=== PATIENT | male | born 1995 | race Caucasian/White ===

== ENCOUNTER 2022-04-05 21:57 | Emergency (ER) | payer BC, OTHER ==
[2022-04-05] MEDS ORDERED: ACETAMINOPHEN 500 MG TAB ONE (23:06)
[2022-04-05] MEDS ORDERED: ONDANSETRON 4 MG (ODT) TAB ONE (23:06)
--- NOTE | 2022-04-05 23:50 | RAD REPORT ---
EXAM DESCRIPTION: RAD - Chest Single View - 04/05/2022 11:06 pm CLINICAL HISTORY: DYSPNEA COMPARISON: <Comparisons> FINDINGS: Lines: None. Lungs: No evidence of edema or pneumonia. Pleural: No significant pleural effusions or pneumothorax. Cardiac: The heart size is within normal limits. Bones: No acute fractures. Other: IMPRESSION: No acute cardiopulmonary disease.
--- NOTE | 2022-04-05 23:56 | ER ---
Nurse's Notes [facility] Name: Jonah Elizabeth Age: 26 yrs Sex: Male : 1995 Arrival Date: 04/05/2022 Time: 21:59 Bed 20 Private MD: Diagnosis: SARS-associated coronavirus as the cause of diseases classified elsewhere;Fever, unspecified;Myalgia Presentation: 04/05 22:07 Chief complaint: Patient states: COVID SYMPTOMS FOR A COUPLE DAYS. Coronavirus screen: [facility] Vaccine status: Patient reports receiving the 2nd dose of the covid vaccine. congestion, cough unrelated to allergies, diarrhea, difficulty breathing, fatigue, fever, headache, muscle pain, nausea, shortness of breath, Client presents with at least one sign or symptom that may indicate coronavirus-19. Standard/surgical mask placed on the client. Ebola Screen: Patient negative for fever greater than or equal to 101.5 degrees Fahrenheit, and additional compatible Ebola Virus Disease symptoms. Initial Sepsis Screen: Does the patient meet any 2 criteria? No. Patient's initial sepsis screen is negative. Does the patient have a suspected source of infection? No. Patient's initial sepsis screen is negative. Risk Assessment: Do you want to hurt yourself or someone else? Patient reports no desire to harm self or others. Onset of symptoms was April 05, 2022. 22:07 Method Of Arrival: Ambulatory [facility] 22:07 Acuity: TO 4 [facility] Triage Assessment: 22:10 General: Appears in no apparent distress. ill, Behavior is calm, cooperative, [facility] appropriate for age. Pain: Complains of pain in GENERALIZED. Respiratory: Reports shortness of breath Onset: The symptoms/episode began/occurred gradually, the patient has mild shortness of breath. Historical: - Allergies: 22:10 NKDA; [facility] - Home Meds: 22:10 None [Active]; 1 - PMHx: 22:10 None; 1 - PSHx: 22:10 None; [facility] - Immunization history:: Adult Immunizations up to date. - Social history:: Smoking status: Patient denies any tobacco usage or history of. Screenin:08 Abuse screen: Denies threats or abuse. Denies injuries from another. Nutritional vc1 screening: No deficits noted. Tuberculosis screening: No symptoms or risk factors identified. Fall Risk None identified. Assessment: 23:08 General: Appears in no apparent distress. comfortable, Behavior is calm, cooperative. vc1 Pain: Complains of pain in generalized body aches. Neuro: No deficits noted. Level of Consciousness is awake, alert, obeys commands, Oriented to person, place, time, situation. Cardiovascular: No deficits noted. Capillary refill < 3 seconds Clubbing of nail beds is absent JVD is absent Patient's skin is warm and dry. Rhythm is regular. Respiratory: Reports cough that is persistent Airway is patent Trachea midline Respiratory effort is even, unlabored, Respiratory pattern is regular, symmetrical, Breath sounds are clear bilaterally. GI: No deficits noted. Reports diarrhea, nausea, vomiting. : No deficits noted. No signs and/or symptoms were reported regarding the genitourinary system. EENT: No deficits noted. No signs and/or symptoms were reported regarding the EENT system. Derm: No deficits noted. No signs and/or symptoms reported regarding the dermatologic system. Skin is intact, is healthy with good turgor, Skin is dry, Skin temperature is warm. Musculoskeletal: No deficits noted. Circulation, motion, and sensation intact. Range of motion: intact in all extremities. 04/06 00:11 Reassessment: Patient appears in no apparent distress at this time. No changes from vc1 previously documented assessment. Patient and/or family updated on plan of care and expected duration. Pain level reassessed. Patient is alert, oriented x 3, equal unlabored respirations, skin warm/dry/pink. Vital Signs: 04/05 22:07 BP 125 / 77; Pulse 108; Resp 18; Temp 101.5; Pulse Ox 97% on R/A; Weight 92.53 kg; bh1 Height 5 ft. 10 in. (177.80 cm); Pain 5/10; 04/06 00:11 BP 128 / 78; Pulse 94; Resp 18 S; Temp 99.8; Pulse Ox 98% on R/A; vc1 04/05 22:07 Body Mass Index 29.27 (92.53 kg, 177.80 cm) [facility] ED Course: 04/05 21:59 Patient arrived in ED. bp1 22:03 Garret Yi DO is Attending Physician. ms3 22:10 Triage completed. bh1 22:10 Arm band placed on right wrist. bh1 22:32 Martina Bradshaw, RN is Primary Nurse. 3 22:36 Flu Sent. 5 22:36 COVID swab sent to lab. Flu and/or RSV swab sent to lab. 5 23:07 CXR XRAY In Process Unspecified. EDMS 23:08 Patient has correct armband on for positive identification. Bed in low position. Call vc1 light in reach. Side rails up X 1. Client placed on continuous cardiac and pulse oximetry monitoring. NIBP monitoring applied. Door closed. Noise minimized. Family accompanied patient. 23:08 Flu Sent. vc1 23:55 Camilo White DO is Referral Physician. ms3 04/06 00:12 No provider procedures requiring assistance completed. Patient did not have IV access vc1 during this emergency room visit. Administered Medications: 04/05 23:08 Drug: Tylenol 1000 mg Route: PO; vc1 04/06 00:12 Follow up: Response: Temperature is decreased vc1 04/05 23:08 Drug: Zofran (Ondansetron) 4 mg Route: PO; vc1 23:08 Follow up: Response: No adverse reaction vc1 Medication: 04/06 00:12 VIS not applicable for this client. vc1 Outcome: 04/05 23:56 Discharge ordered by MD. ms3 04/06 00:12 Discharged to home ambulatory. vc1 Condition: stable Discharge instructions given to patient, Instructed on discharge instructions, medication usage, Demonstrated understanding of instructions, medications, Prescriptions given X 1. 00:20 Patient left the ED. vc1 Signatures: Dispatcher [employer] [facility] Kerry Piña [facility] Martina Bradshaw, RN RN [facility] Garret Yi DO DO ia3 Bernice Willett [facility] Trinity Prather RN RN 1 Brandee Mchugh, RN RN [facility]
--- NOTE | 2022-04-05 23:57 | EDPHYS ---
Physician Documentation [facility] Name: Jonah Elizabeth Age: 26 yrs Sex: Male : 1995 Arrival Date: 04/05/2022 Time: 21:59 Bed 20 Private MD: ED Physician Garret Yi HPI: 04/05 22:11 This 26 yrs old Male presents to ER via Ambulatory with complaints of Breathing ms3 Difficulty, Dizziness, Headache, Abdominal Pain. 22:11 26-year-old presents for shortness of breath, fatigue, fevers, chills, body aches that ms3 began today. Patient states his discomfort is 6/10 described as aching. Patient denies alleviating or inciting factors. Patient endorses nausea, vomiting, decreased appetite. Patient denies diarrhea. Historical: - Allergies: 22:10 NKDA; bh1 - Home Meds: 22:10 None [Active]; bh1 - PMHx: 22:10 None; bh1 - PSHx: 22:10 None; bh1 - Immunization history:: Adult Immunizations up to date. - Social history:: Smoking status: Patient denies any tobacco usage or history of. ROS: 22:11 Eyes: Negative for injury, pain, redness, and discharge, Neck: Negative for injury, ms3 pain, and swelling, Cardiovascular: Negative for chest pain, and palpitations. 22:11 MS/Extremity: Negative for injury and deformity, Skin: Negative for injury, rash, and discoloration, Allergy/Immunology: Negative for hives, rash, and allergies. 22:11 Constitutional: Positive for body aches, chills, fever, poor PO intake. 22:11 Respiratory: Positive for shortness of breath. 22:11 Abdomen/GI: Positive for nausea and vomiting. 22:11 All other systems are negative. Exam: 22:11 Constitutional: This is a well developed, well nourished patient who is awake, alert, ms3 and in no acute distress. Head/Face: Normocephalic, atraumatic. Neck: Trachea midline, no cervical lymphadenopathy. Supple, full range of motion without nuchal rigidity, or vertebral point tenderness. No Meningismus. Chest/axilla: Normal chest wall appearance and motion. Nontender with no deformity. 22:11 Cardiovascular: Regular rate and rhythm with a normal S1 and S2. No gallops, murmurs, or rubs. Normal PMI, no JVD. No pulse deficits. Respiratory: Lungs have equal breath sounds bilaterally, clear to auscultation and percussion. No rales, rhonchi or wheezes noted. No increased work of breathing, no retractions or nasal flaring. Abdomen/GI: Soft, non-tender, with normal bowel sounds. No distension or tympany. No guarding or rebound. No evidence of tenderness throughout. Skin: Warm, dry with normal turgor. Normal color with no rashes, no lesions, and no evidence of cellulitis. MS/ Extremity: Pulses equal, no cyanosis. Neurovascular intact. Full, normal range of motion. Neuro: Awake and alert, GCS 15, oriented to person, place, time, and situation. Cranial nerves II-XII grossly intact. Motor strength 5/5 in all extremities. Sensory grossly intact. Cerebellar exam normal. Normal gait. Psych: Awake, alert, with orientation to person, place and time. Behavior, mood, and affect are within normal limits. 22:11 Cardiovascular: Rate: tachycardic, Rhythm: regular, Pulses: no pulse deficits are appreciated, Heart sounds: normal. Vital Signs: 22:07 BP 125 / 77; Pulse 108; Resp 18; Temp 101.5; Pulse Ox 97% on R/A; Weight 92.53 kg; [facility] Height 5 ft. 10 in. (177.80 cm); Pain 5/10; 04/06 00:11 BP 128 / 78; Pulse 94; Resp 18 S; Temp 99.8; Pulse Ox 98% on R/A; vc1 04/05 22:07 Body Mass Index 29.27 (92.53 kg, 177.80 cm) [facility] MDM: 04/05 22:09 Patient medically screened. ms3 22:11 Differential diagnosis: COVID vs Flu vs PNA. ms3 23:56 Data reviewed: vital signs, nurses notes, lab test result(s), radiologic studies, and ms3 as a result, I will discharge patient. Counseling: I had a detailed discussion with the patient and/or guardian regarding: the historical points, exam findings, and any diagnostic results supporting the discharge/admit diagnosis, lab results, radiology results, the need for outpatient follow up, to return to the emergency department if symptoms worsen or persist or if there are any questions or concerns that arise at home. ED course: On re-evaluation patient is improved, A/O x4, nad, non-toxic, ambulatory in ED, speaking full sentences.. 04/05 22:11 Order name: Flu; Complete Time: 23:37 ms3 04/05 22:13 Order name: Influenza Screen (A ; Complete Time: 23:37 EDMS 04/05 22:15 Order name: CXR XRAY; Complete Time: 23:55 ms3 Administered Medications: 23:08 Drug: Tylenol 1000 mg Route: PO; vc1 04/06 00:12 Follow up: Response: Temperature is decreased vc1 04/05 23:08 Drug: Zofran (Ondansetron) 4 mg Route: PO; vc1 23:08 Follow up: Response: No adverse reaction vc1 Disposition Summary: 04/05/22 23:56 Discharge Ordered Location: Home ms3 Condition: Stable ms3 Diagnosis - SARS-associated coronavirus as the cause of diseases classified elsewhere ms3 - Fever, unspecified ms3 - Myalgia ms3 Followup: ms3 - With: Camilo White DO - When: 2 - 3 days - Reason: Recheck today's complaints Discharge Instructions: - Discharge Summary Sheet ms3 - COVID-19 ms3 - Things to Know about the COVID-19 Pandemic - [facility] ms3 - 10 Things You Can Do to Manage Your COVID-19 Symptoms at Home - [facility] ms3 - COVID-19: Quarantine vs. Isolation - [facility] ms3 - Prevent the Spread of COVID-19 if You Are Sick - [facility] ms3 Forms: - Medication Reconciliation Form ms3 - Thank You Letter ms3 - Antibiotic Education ms3 - Prescription Opioid Use ms3 Prescriptions: - ondansetron 4 mg Oral tablet,disintegrating - take 1 tablet by ORAL route every 8 hours; 15 tablet; Refills: 0, Product ms3 Selection Permitted Signatures: Dispatcher [employer] [facility] Garret Yi DO DO ms3 Trinity Prather, RN RN vc1 Brandee Mchugh RN RN 1
[2022-04-06 01:14] VITALS: BP 128/78; TEMP 99.8; O2SAT 98
== END 2022-04-06 00:20 | disposition home or self-care (01) ==
LOC: ER 21:57
DX: U07.1 COVID-19 (principal); R50.9 Fever, unspecified; M79.10 Myalgia, unspecified site
CPT/HCPCS: 87804 ×2; 71045; 99284; U0003; Q0162